=== PATIENT | female | born 1960 | race Caucasian/White ===

== ENCOUNTER 2020-02-27 23:04 | Inpatient (IN) | payer OTHER ==
[~2020-02-27] VITALS: Ht 177.8 cm; Wt 150.4 kg
[2020-02-28] VITALS (51 sets, daily range): BP systolic 86–130; BP diastolic 37–85
[2020-02-28 00:09] LABS: Basophils # (auto) 0.1 10 ^3/uL (0-0.2); Basophils % (auto) 0.8 % (0.0-2.0); Eosinophils # (auto) 0.1 10 ^3/uL (0-0.8); Eosinophils % (auto) 1.2 % (0.0-7.0); Hematocrit 36.6 % (36.0-46.0); Hemoglobin 12.2 g/dL (12.2-16.2); Lymphocytes # (auto) 2.2 10 ^3/uL (0.4-5.4); Lymphocytes % (auto) 19.6 % (10.0-50.0); Mean Corpuscular Hemoglobin 29.4 pg (28.0-32.0); Mean Corpuscular Hgb Conc. 33.4 g/dL (32.0-36.0); Mean Corpuscular Volume 87.9 fL (80.0-100.0); Monocytes # (auto) 0.7 10 ^3/uL (0-1.3); Monocytes % (auto) 5.9 % (0.0-12.0); Neutrophils # (auto) 8.1 10 ^3/uL (1.6-8.6); Neutrophils % (auto) 72.5 % (37.0-80.0); Platelet Count (auto) 315 10^3/uL (140-450); Red Blood Cells 4.17 10^6/uL (4.0-5.20); Red Cell Distribution Width 15.1 % (11.8-14.3); White Blood Cell 11.2 10^3/uL (4.4-10.8)
[2020-02-28] MEDS ORDERED: dilTIAZem 25 MG/5 ML VIAL IV ONE ×2 (00:15→04:30)
[2020-02-28 00:17] LABS: INR 1.08 (0.9-1.15); Partial Thromboplastin Time 30.7 sec (23.0-31.2)
[2020-02-28 00:19] LABS: Alanine Aminotransferase 21 U/L (13-56); Albumin 3.2 g/dL (3.4-5.0); Anion Gap 7 (5-15); Aspartate Aminotransferase 15 U/L (15-37); Blood Urea Nitrogen 16 mg/dL (7-18); Calcium 8.8 mg/dL (8.5-10.1); Carbon Dioxide 22 mmol/L (21-32); Chloride 113 mmol/L (98-107); GFR African American 53 mL/min; GFR Non-African American 43 mL/min; Glucose 143 mg/dL (74-106); Potassium 3.6 mmol/L (3.5-5.1); Sodium 142 mmol/L (136-145)
[2020-02-28 00:24] LABS: Alkaline Phosphatase 102 U/L (45-117); Bilirubin, Total 0.2 mg/dL (0.2-1.0)
[2020-02-28] MEDS ORDERED: AMIODARONE HCL 150 MG in D5W 5% 100 ML IV STA (01:35)
[2020-02-28] MEDS ORDERED: LORazepam 2MG/ML-1ML VIAL IV ONE (01:45)
[2020-02-28] MEDS ORDERED: AMIODARONE HCL (50 MG/ ML) 3 ML VIAL IV ONE (02:10)
[2020-02-28] MEDS ORDERED: SODIUM CHLORIDE 0.9% 1,000 ML IV ONE (03:15)
[2020-02-28] MEDS ORDERED: dilTIAZem 125mg/125ml BAG KIT 125 ML IV ONE (04:30)
[2020-02-28] MEDS ORDERED: ONDANSETRON HCL 4 MG/2 ML VIAL IV PRN (05:15)
[2020-02-28] MEDS ORDERED: TEMAZEPAM 15 MG CAP PO PRN (05:15)
[2020-02-28] MEDS ORDERED: ACETAMINOPHEN 325 MG TAB PO PRN (05:15)
[2020-02-28] MEDS ORDERED: DOCUSATE SOD 100 MG CAP PO PRN (05:15)
[2020-02-28] MEDS ORDERED: LORazepam 0.5 MG TAB PO PRN (05:15)
[2020-02-28] MEDS ORDERED: HYDROcodone-ACET 5/325MG TAB PO PRN (05:15)
--- NOTE | 2020-02-28 09:10 | NUR ---
ICU admit from ER SERINAJACKY admitted to ICU unit after telephone report. Patient oriented to Elissa ontiveros RN, unit, room, bed, and unit policies regarding patient care and visiting hours. Patient now on continuous bedside monitoring, noted Afib 148 bp 96/73. Patient denies any cp or dizziness. Cardizem gtt infusing at 8mg/hr to left ac 18g. IV patent and asymptomatic. Patient on room air, pox 97% . Skin intact, only noted to have multiple pink scabs throughout body. Denies any pain. Home medications taken to pharmacy. All belongings reviewed and verified on checklist. Encouraged dahl to be taken to safe, Dahl requested to stay at bedside. Patient aware hospital is not responsible for any lost items. Patient weighed by bedscale and encouraged to call if they need something. All questions and concerns addressed, patient verbalized understanding. Note: See further notes.
[2020-02-28] MEDS ORDERED: OXYB10GE PO (10:02)
[2020-02-28] MEDS ORDERED: RIVA20TA PO (10:02)
[2020-02-28] MEDS ORDERED: VERA120T6 PO (10:02)
[2020-02-28] MEDS ORDERED: OMEP-434 PO (10:02)
--- NOTE | 2020-02-28 10:24 | NUR ---
APPLIED PSYCHOLOGY CHAIR DR. KAUFMAN AT BEDSIDE UPDATED ON PATIENTS STATUS. NEW ORDERS IN PLACE. Addendum: 02/28/20 at 1432 by Elissa Stratton RN Medication to be given cautiously as patients bp 100's. Will continue to monitor.
[2020-02-28] MEDS ORDERED: DIGOXIN (250MCG/ML) 2 ML AMPULE IV ONE ×2 (10:30→14:30)
--- NOTE | 2020-02-28 11:00 | NUR ---
Elimination Patients expressed having to urinate. Patient assisted to bedside commode using standby assistance. Patient denied any cp or dizziness. Hr noted to increase to 130's otherwise tolerated well. 300ml of cloudy, pale urine noted.... urine to be collected.
[2020-02-28] MEDS ORDERED: AMIODARONE HCL 200 MG TAB PO ONE (11:15)
--- NOTE | 2020-02-28 11:49 | NUR ---
NO PASSWORD- FAMILY PATIENTS NOK IS - HOLGER VELAZQUEZ. IS CURRENTLY UNAVAILABLE HE IS HOSPITALIZED IN ICU AT THIS TIME. CONTACT FOR EMERGENCY SITUATION ONLY IS SISTER IN LAW MARY ANN FOR GENERALIZED INFORMATION ONLY.
[2020-02-28] MEDS ORDERED: METOPROLOL TARTRATE 25 MG TAB PO ONE (12:00)
--- NOTE | 2020-02-28 12:00 | NUR ---
Md Rounds Md updated patient at bedside. New orders in place. Per md if patients hr becomes more stable, pt to be downgraded in evening.
--- NOTE | 2020-02-28 12:06 | NUR ---
IV insertion IV access obtained, via clean sterile technique by inserting 20 gauge catheter at LEFT HAND after 1 attempt(s). IV secured properly. No trauma to site. Patient tolerated procedure well.
--- NOTE | 2020-02-28 13:00 | NUR ---
Nutrition Patient ate 100% of lunch tray. Tolerated well with no difficulties.
--- NOTE | 2020-02-28 14:26 | NUR ---
Medication/ Hr 150's. Despite mediations given as ordered, patients hr ranging 115-145. Cardizem gtt increased. See iv spreadsheet.
--- NOTE | 2020-02-28 15:35 | NUR ---
Medication Heart rate trending 95-130's. Digoxin Ivp to be given as ordered. Patient denies any cp or dizziness. Addendum: 02/28/20 at 1538 by Elissa Stratton RN AMEND: DIGOXIN TO BE GIVEN 6 HRS AFTER FIRST DOSE. CARDIZEM GTT TO BE ADJUSTED ORDERED FOR HR CONTROL LESS THAN 110.
[2020-02-28] MEDS ORDERED: dilTIAZem 125mg/125ml BAG KIT 125 ML IV SCH (17:00)
[2020-02-28 18:35] LABS: Urine Bacteria FEW /hpf (None Seen); Urine Blood Negative /uL (Negative); Urine Specific Gravity 1.013 (1.001-1.035); Urine WBC 23 /hpf (0 - 5)
--- NOTE | 2020-02-28 19:18 | NUR ---
Shoeshiner Paged paged to notify of patients current condition as hr is still 115-140's at rest although still remains asymptomatic. New orders in place for flaco Hyatt. stating if patient not better by Sunday possible cardioversion.
[2020-02-28] MEDS: OXYBUTYNIN CHL 5 MG TAB PO SCH (21:29)
[2020-02-28] MEDS: RIVAROXABAN 20 MG TAB PO SCH (21:30)
[2020-02-28] MEDS: AMIODARONE HCL 200 MG TAB PO SCH (21:31)
[2020-02-28] MEDS ORDERED: RIVAROXABAN 20 MG TAB PO SCH (22:00)
[2020-02-28] MEDS ORDERED: METOPROLOL TARTRATE 25 MG TAB PO SCH (22:00)
[2020-02-28] MEDS ORDERED: OXYBUTYNIN CHL 5 MG TAB PO SCH (22:00)
--- NOTE | 2020-02-28 22:05 | NUR ---
Elimination pt up to bedside toilet with standby assistance. No complaints of dizziness/SOB. Ambulates well with even and steady gait. 400 ml of cloudy yellow, strong smelling urine measured.
[2020-02-28] MEDS: dilTIAZem HCL 60 MG TAB PO SCH (23:56)
[2020-02-29] VITALS (44 sets, daily range): BP systolic 78–146; BP diastolic 46–113
--- NOTE | 2020-02-29 02:17 | NUR ---
Elimination pt up to bedside toilet with standby assistance. No complaints of dizziness/SOB. Ambulates well with even and steady gait. 300 ml of cloudy yellow, strong smelling urine measured.
--- NOTE | 2020-02-29 03:57 | NUR ---
CARDIZEM GTT HELD FOR HYPOTENSION AND STABLE HR AT THIS TIME.
--- NOTE | 2020-02-29 04:07 | NUR ---
PT REFUSING Q15 MINUTE VITAL SIGNS PT STATES THAT "CUFF IS HURTING" AND THAT "THE PAIN WILL MAKE MY HEART RATE HIGHER" EDUCATED PT ON ICU STANDARDS OF CARE AND SIDE EFFECTS OF MEDICATIONS SHE HAS BEEN RECEIVING AND IMPORTANCE OF HAVING ACCURATE AND FREQUENT BP MEASUREMENTS. DESPITE EDUCATION SHE REFUSES Q15 MINUTE VITAL SIGNS, BUT DOES AGREE TO Q1HOUR. ATTEMPTED COMFORT MEASURES, CUFF REPOSITIONING, AND ARM ELEVATION WITH NO SUCCESS. Addendum: 02/29/20 at 0526 by TINO HERNANDEZ RN PT REFUSED TO WEAR NC AT 2L WHILE SLEEPING DESPITE DESATURATING INTO LOW 80'S. PT STATES THAT SHE DOES NOT LIKE THE SMELL OF THE OXYGEN.
[2020-02-29 04:18] LABS: Basophils # (auto) 0.1 10 ^3/uL (0-0.2); Basophils % (auto) 0.6 % (0.0-2.0); Eosinophils # (auto) 0.2 10 ^3/uL (0-0.8); Eosinophils % (auto) 1.7 % (0.0-7.0); Hematocrit 39.5 % (36.0-46.0); Hemoglobin 13.1 g/dL (12.2-16.2); Lymphocytes # (auto) 1.9 10 ^3/uL (0.4-5.4); Lymphocytes % (auto) 19.3 % (10.0-50.0); Mean Corpuscular Hemoglobin 29.6 pg (28.0-32.0); Mean Corpuscular Hgb Conc. 33.1 g/dL (32.0-36.0); Mean Corpuscular Volume 89.4 fL (80.0-100.0); Monocytes # (auto) 0.7 10 ^3/uL (0-1.3); Monocytes % (auto) 7.1 % (0.0-12.0); Neutrophils # (auto) 6.9 10 ^3/uL (1.6-8.6); Neutrophils % (auto) 71.3 % (37.0-80.0); Platelet Count (auto) 303 10^3/uL (140-450); Red Blood Cells 4.42 10^6/uL (4.0-5.20); Red Cell Distribution Width 15.2 % (11.8-14.3); White Blood Cell 9.6 10^3/uL (4.4-10.8)
[2020-02-29 04:33] LABS: Potassium 4.3 mmol/L (3.5-5.1)
[2020-02-29 04:42] LABS: BUN/Creatinine Ratio 12.7; Bilirubin, Total 0.3 mg/dL (0.2-1.0); Calcium 8.6 mg/dL (8.5-10.1); Total Protein 6.8 g/dL (6.4-8.2)
[2020-02-29] MEDS: dilTIAZem HCL 60 MG TAB PO SCH (06:00)
--- NOTE | 2020-02-29 06:31 | NUR ---
IV DISCONTINUED 18G TO LEFT AC DISCONTINUED DUE TO EXCESSIVE BLEEDING AROUND SITE. CATHETER INTACT UPON REMOVAL. PT TOLERATED WELL WITH NO COMPLAINTS OF PAIN.
--- NOTE | 2020-02-29 06:56 | NUR ---
CARDIZEM GTT RESTARTED FOR HR MAINTAINING >120 BEATS/MIN. PT AGREES TO Q15 BP MEASUREMENTS WHILE ON GTT.
--- NOTE | 2020-02-29 07:30 | NUR ---
STATUS REPORT OBTAINED. PATIENT RESTING AND HR NOTED 98-130'S. BP STABLE. PT REMAINS ON CARDIZEM GTT AT THIS TIME. SEE PHYSICAL/ INTERVENTIONS.
--- NOTE | 2020-02-29 08:30 | NUR ---
MEDICATIONS REFUSED MORNING MEDIATIONS REVIEWED WITH PATIENT. PATIENT UPSET THAT WET PAN MIXER HAS NOT PUT HER BACK ON HER HOME MEDICATIONS. SHE IS EXPRESSING FRUSTRATION BECAUSE HER HR IS STILL NOT MANAGED. EXPLAINED TO PATIENT THAT MEDICATION PRESCRIBED ARE TO ASSIST WITH BRINGING HR DOWN. PATIENT CONTINUES TO EXPRESS FRUSTRATION AND REFUSING TO TAKE MORNING MEDICATIONS UNTIL WET PAN MIXER ARRIVES. TO BE PAGED.
--- NOTE | 2020-02-29 08:45 | NUR ---
ELIMINATION PATIENT ABLE TO AMBULATE TO RESTROOM USING STANDBY ASSISTANCE. STEADY GAIT NOTED. HR NOTED IN 130'S PT REMAINS ASYMPTOMATIC
[2020-02-29] MEDS: cefTRIAXone 1GM/50ML D5W 50 ML IV SCH (08:50)
[2020-02-29] MEDS ORDERED: CAND4TAB7 PO (08:56)
[2020-02-29] MEDS ORDERED: BISO5TAB44 PO (09:01)
--- NOTE | 2020-02-29 09:03 | NUR ---
ER/ MEDICATION ASKING PATIENT HOME MEDICATION LIST SHE MENTIONED SHE TAKES AN ALTERNATIVE MEDICATION PRN WHEN HR ELEVATED. MED REC UPDATED. WHEN ASKED WHAT MEDICATION IT IS, SHE STATED "I HAVE IT IN MY BAG". LOOKED OVER IN BELONGINGS AND PILLS NOT PRESENT ALTHOUGH ANOTHER BOTTLE WAS FOUND. MEDICATION TO BE TAKEN TO PHARMACY. ER CALLED TO DETERMINE IF THEY HAVE MISSING PILLS. ER STATED THEY DON'T HAVE ANYTHING AT THIS TIME BUT THEY WILL LOOK AROUND. PATIENT NOTIFIED.
--- NOTE | 2020-02-29 09:28 | NUR ---
Lumber Piler Operator update Dr. Weeks aware of refusal to take medications at this time. Per md home medications are not to be started at this time. Md will round soon. Patient notified.
[2020-02-29] MEDS ORDERED: PANTOPRAZOLE 40 MG TAB PO SCH (10:00)
--- NOTE | 2020-02-29 10:22 | NUR ---
Upset Patient explained that md will be rounding shortly and will explain why he would like for her to remain on current prescribed medications. Patient continues to express frustration stating, " I have never had this problem when my heart rate has been so high for so long." Explained hr was managed over night as Cardizem gtt was stopped. Explained taking morning medication prescribed by physicist cryogenics could assist with elevated hr. Patient continues to state she refuses medications because she wants to start back on her own heart medications. Patient aware of risk of not taking medications and having elevated heart rate. Patient verbalized understanding and continues to refuse.
--- NOTE | 2020-02-29 10:32 | NUR ---
IV removal Patient called stating her iv is "stinging". Iv is tender to touch, slighly puffy. IV DC'd with sterile technique, catheter fully intact. Pressure dressing applied to site. Patient tolerated procedure well.
--- NOTE | 2020-02-29 10:43 | NUR ---
Plate Corrector Dr. Weeks at bedside. Patient expressing her concern, hx of similar episodes and frustration. Md explained medications of his choice at this time, patient refusing to listen and continues to insist she wants her medications because " they work". Md explained medications have not been working therefore she is here in the icu being treated for elevated hr. Md agrees to attempt her home medications as she is insisting. Cardizem gtt to be turned off.
--- NOTE | 2020-02-29 10:49 | NUR ---
ER CALLED AGAIN TO VERIFY IF HOME MEDICATION CLAIMED BY PATIENT WAS FOUND. CHIEF CRNA STATING SHE LOOKED IN ROOM AND OTHER LOCATIONS. NO MEDICATIONS FOUND.
--- NOTE | 2020-02-29 10:57 | NUR ---
BETA CLOVIS UNAVAILABLE PATIENT BISOPROLOL UNAVAILABLE THROUGH IN HOUSE PHARMACY. EQUIVALENT DOSE IS ATENOLOL PER RX. PATIENT AGREED TO TAKE EQUIVALENT DOSE. MD AGREES. SEE NEW ORDER.
--- NOTE | 2020-02-29 10:59 | NUR ---
IV insertion IV access obtained, via clean sterile technique by inserting 20 gauge catheter at right AC after 3 attempt(s) By 2 nurses. IV secured properly. No trauma to site. Patient tolerated procedure well.
[2020-02-29] MEDS ORDERED: VERAPAMIL HCL 120 mg ER tab PO ONE (11:00)
[2020-02-29] MEDS ORDERED: ATENOLOL 50 MG TAB PO ONE (11:00)
[2020-02-29] MEDS: AMIODARONE HCL 200 MG TAB PO SCH ×2 (11:29→21:48)
--- NOTE | 2020-02-29 13:00 | NUR ---
Nutrition Patient sitting at edge of bed with lunch tray. Ate 100%, pt tolerated well.
--- NOTE | 2020-02-29 14:00 | NUR ---
Elimination Patient requesting to use restroom in roon. Patient transferred independently with steady gait noted. Hr remained under 120's. Pt tolerated well. Urine noted yellow, cloudy with strong odor. Self emre care provided.
--- NOTE | 2020-02-29 18:24 | NUR ---
Activity tolerated well Patient sitting up at edge of bed. Hr remained 88-96. Diet tolerated well. Dinner tray provided.
[2020-02-29] MEDS: OXYBUTYNIN CHL 5 MG TAB PO SCH (21:47)
[2020-02-29] MEDS: RIVAROXABAN 20 MG TAB PO SCH (21:49)
[2020-02-29] MEDS: OMEPRAZOLE 20 MG PO SCH (21:50)
[2020-03-01] VITALS (15 sets, daily range): BP systolic 94–128; BP diastolic 62–84
--- NOTE | 2020-03-01 06:00 | NUR ---
OOB TO RESTROOM Patient walked to the restroom independently with steady gait during night x3.
--- NOTE | 2020-03-01 08:37 | NUR ---
DR. KAUFMAN AT BEDSIDE
--- NOTE | 2020-03-01 08:47 | NUR ---
REPORT GIVEN TO FADY WILLSON TO ASSUME CARE
--- NOTE | 2020-03-01 08:49 | NUR ---
Opening Shift Note Assumed care of patient, awake and alert, watching television, ate 100% of breakfast. Patient denies pain or discomfort at this time. Instructed on POC and to call for assist PRN, will continue to monitor for changes Q1hr and PRN.
[2020-03-01] MEDS: cefTRIAXone 1GM/50ML D5W 50 ML IV SCH (09:19)
[2020-03-01] MEDS: AMIODARONE HCL 200 MG TAB PO SCH ×2 (09:20→21:59)
[2020-03-01] MEDS: VERAPAMIL HCL 120 mg ER tab PO SCH ×2 (09:22→22:08)
[2020-03-01] MEDS: ATENOLOL 50 MG TAB PO SCH (09:23)
[2020-03-01] MEDS ORDERED: VERAPAMIL HCL 120 mg ER tab PO SCH (10:00)
--- NOTE | 2020-03-01 11:10 | NUR ---
URINE SENT/OUT OF BED PATIENT AMBULATED TO TOILET WITH STANDBY ASSIST ONLY, URINE SENT TO LAB ORDERED BY MD. PATIENT SITTING UP IN CHAIR, TOLERATING WELL. CALL LIGHT AND ALL PERSONAL BELONGINGS WITHIN REACH. FALL AND SAFETY PRECAUTIONS IN PLACE.
--- NOTE | 2020-03-01 16:15 | NUR ---
RETURN TO BED PATIENT REQUESTING TO USE TOILET AND RETURN TO BED. PATIENT ABLE TO AMBULATE FROM CHAIR TO BED AND REPORTED FEELING DIZZY, PATIENT PLACED ON 2 LITERS OXYGEN VIA NASAL CANNULA. PATIENT REPORTED FEELING BETTER BUT NEEDED TO "PEE". PATIENT AMBULATED FROM BED TO TOILET AND ABLE TO PERFORM OWN ADLS. ONCE AGAIN PATIENT AMBULATED FROM TOILET TO BED WITH STANDBY ASSISTANCE. ALL PERSONAL BELONGINGS AND CALL LIGHT WITHIN REACH, FALL AND SAFETY PRECAUTIONS IN PLACE. WILL CONTINUE TO MONITOR.
[2020-03-01] MEDS: MUPIROCIN 2% OINT 15gm or 22gm EACHNOSTRI SCH ×2 (18:16→21:59)
--- NOTE | 2020-03-01 19:00 | NUR ---
Opening Shift Note Assumed care of patient, awake and alert. No S/S of distress/SOB or pain. Instructed on POC and to call for assist PRN, will continue to monitor for changes Q1hr and PRN.
--- NOTE | 2020-03-01 20:30 | NUR ---
BM: Patient had a BM.
--- NOTE | 2020-03-01 20:45 | NUR ---
Report given to Sanjay WILLSON.
--- NOTE | 2020-03-01 21:00 | NUR ---
Transfer: Patient transferred to tele unit, room 220B with no incident.
--- NOTE | 2020-03-01 21:00 | NUR ---
REPORT RECEIVED FROM ICU NURSE CHEPE RECEIVED PATIENT SHORTLY AFTERWARDS. PATIENT AOX4, PATIENT STABLE AND PLACED INTO BED. PATIENT EDUCATED ON PLAN OF CARE FOR THE NIGHT AND PATIENT VERBALIZED UNDERSTANDING. BED LOWERED, CALL LIGHT WITHIN REACH, AND PATIENT WILL BE ROUNDED ON EVERY HOUR AND NEEDED.
[2020-03-01] MEDS: OMEPRAZOLE 20 MG PO SCH (21:59)
[2020-03-01] MEDS: RIVAROXABAN 20 MG TAB PO SCH (21:59)
[2020-03-01] MEDS: OXYBUTYNIN CHL 5 MG TAB PO SCH (21:59)
[2020-03-02 05:19] VITALS: BP 114/67
--- NOTE | 2020-03-02 07:30 | NUR ---
Opening Shift Note Assumed care of patient from noc shift rn, awake, A/O x4. No S/S of distress/SOB, denies pain. Instructed on POC and to call for assist PRN. Bed in the lowest and locked position, call light within reach. Will continue to monitor for changes Q1hr and PRN.
[2020-03-02] MEDS: cefTRIAXone 1GM/50ML D5W 50 ML IV SCH (08:28)
[2020-03-02 09:00] VITALS: BP 110/66
[2020-03-02] MEDS: VERAPAMIL HCL 120 mg ER tab PO SCH (09:59)
[2020-03-02] MEDS: ATENOLOL 50 MG TAB PO SCH (10:00)
[2020-03-02] MEDS: MUPIROCIN 2% OINT 15gm or 22gm EACHNOSTRI SCH (10:01)
[2020-03-02] MEDS: AMIODARONE HCL 200 MG TAB PO SCH (10:01)
--- NOTE | 2020-03-02 10:22 | NUR ---
DR. Servando LEVI AT BEDSIDE, DISCUSSED DISCHARGE PLANS AND NEW PRESCRIPTION WITH PT. PATIENT VERBALIZED UNDERSTANDING.
[2020-03-02 13:15] VITALS: BP 110/66
--- NOTE | 2020-03-02 13:50 | NUR ---
assessment Patient has no post discharge needs identified. Addendum: 03/02/20 at 1351 by Jeri DODSON Amended: Links added.
--- NOTE | 2020-03-02 14:33 | NUR ---
PATIENT DISCHARGED HOME PER MD'S ORDER. NEW PRESCRIPTIONS, SUMMARY OF CARE AND FOLLOW UP INSTRUCTIONS PROVIDED. PATIENT VERBALIZED UNDERSTANDING. OWN MEDICATION PICKED UP FROM PHARMACY AND GIVEN TO PATIENT. IV DISCONTINUED AND TELE MONITOR RETURNED TO ICU. PATIENT REMAINS A/O DURING DISCHARGE.
== END 2020-03-02 14:33 | disposition home or self-care (01) | DRG 309 ==
LOC: EDBD 23:04 → ER 23:09 → TELE 23:10 → ICU WEST 02-28 07:26 → TELE-CENTR 03-01 20:53
PROVIDERS: ADMIT Hospitalist; ATTEND Family Medicine
DX: I48.91 Unspecified atrial fibrillation (principal); N39.0 Urinary tract infection, site not specified; Z68.42 Body mass index [BMI] 45.0-49.9, adult; I70.0 Atherosclerosis of aorta; E66.01 Morbid (severe) obesity due to excess calories; I10 Essential (primary) hypertension; I95.9 Hypotension, unspecified; F41.9 Anxiety disorder, unspecified; R73.9 Hyperglycemia, unspecified; N32.81 Overactive bladder; Z87.440 Personal history of urinary (tract) infections; Z91.19 Patient's noncompliance with other medical treatment and regimen; Z79.01 Long term (current) use of anticoagulants
CPT/HCPCS: 36415; 71045; 80053; 81001; 83036; 83735; 83880; 84443; 84484; 85025; 85610; 85730; 87081; 87086; 93005; G0378; J0696; J7060

== ENCOUNTER 2021-03-24 13:22 | Inpatient (IN) | payer OTHER ==
[~2021-03-24] VITALS: Ht 167.6 cm; Wt 93.1 kg
[~2021-03-24 13:22] MED LIST: BISO5TAB44 PO; CAND4TAB7 PO; OMEP-434 PO; OXYB10GE PO; RIVA20TA PO; VERA120T13 PO
[2021-03-24] MEDS ORDERED: dilTIAZem 25 MG/5 ML VIAL IV ONE ×2 (13:42→14:00)
[2021-03-24] MEDS ORDERED: dilTIAZem 125mg/125ml BAG KIT 125 ML IV ONE ×3 (13:48→14:00)
[2021-03-24 14:25] LABS: Basophils # (auto) 0.1 10 ^3/uL (0-0.2); Basophils % (auto) 0.9 % (0.0-2.0); Eosinophils # (auto) 0.1 10 ^3/uL (0-0.8); Eosinophils % (auto) 0.9 % (0.0-7.0); Hematocrit 43.3 % (36.0-46.0); Hemoglobin 14.1 g/dL (12.2-16.2); Lymphocytes # (auto) 2.3 10 ^3/uL (0.4-5.4); Lymphocytes % (auto) 21.8 % (10.0-50.0); Mean Corpuscular Hemoglobin 28.8 pg (28.0-32.0); Mean Corpuscular Hgb Conc. 32.7 g/dL (32.0-36.0); Mean Corpuscular Volume 88.1 fL (80.0-100.0); Monocytes # (auto) 0.7 10 ^3/uL (0-1.3); Monocytes % (auto) 6.6 % (0.0-12.0); Neutrophils # (auto) 7.5 10 ^3/uL (1.6-8.6); Neutrophils % (auto) 69.8 % (37.0-80.0); Red Blood Cells 4.92 10^6/uL (4.0-5.20); Red Cell Distribution Width 15.4 % (11.8-14.3); White Blood Cell 10.8 10^3/uL (4.4-10.8)
[2021-03-24 14:36] LABS: INR 1.2 (0.9-1.15); Partial Thromboplastin Time 34.6 sec (23.6-33.0)
[2021-03-24 14:37] LABS: Albumin 3.2 g/dL (3.4-5.0); Calcium 8.7 mg/dL (8.5-10.1); Potassium 3.9 mmol/L (3.5-5.1)
[2021-03-24 14:44] LABS: BUN/Creatinine Ratio 12.5; Bilirubin, Total 0.5 mg/dL (0.2-1.0); Total Protein 7.6 g/dL (6.4-8.2)
[2021-03-24] MEDS ORDERED: OXYB5TAB61 PO (16:20)
[2021-03-24] MEDS ORDERED: LACTCAP35 PO (16:21)
[2021-03-24] MEDS ORDERED: MORPHINE SULFATE INJECTION 2 MG/ML SYRG IV PRN ×3 (16:30→18:15)
[2021-03-24] MEDS ORDERED: NITROGLYCERIN 0.4 MG SL TAB SL PRN ×2 (16:30→18:15)
[2021-03-24] MEDS ORDERED: LACTATED RINGER'S 1,000 ML IV ONE (17:45)
[2021-03-24] MEDS ORDERED: dilTIAZem 125mg/125ml BAG KIT 125 ML IV SCH (17:45)
[2021-03-24] MEDS ORDERED: METOPROLOL SUCCINATE XL 50 MG TAB PO ONE (18:00)
[2021-03-24] MEDS ORDERED: ACETAMINOPHEN 325 MG TAB PO PRN (18:15)
[2021-03-24] MEDS ORDERED: HYDROcodone-ACET 5/325MG TAB PO PRN (18:15)
[2021-03-24] MEDS ORDERED: ATORVASTATIN 20 MG TAB PO ONE (18:15)
[2021-03-24] MEDS ORDERED: LORazepam 0.5 MG TAB PO PRN (18:15)
[2021-03-24] MEDS ORDERED: CEFEPIME 1 GM in SODIUM CHL 0.9% 50 ML IV ONE (18:15)
[2021-03-24] MEDS ORDERED: ONDANSETRON HCL 4 MG/2 ML VIAL IV PRN (18:15)
[2021-03-24] MEDS ORDERED: DOCUSATE SOD 100 MG CAP PO PRN (18:15)
[2021-03-24] MEDS ORDERED: ALUM & MAG HYDROX-SIMETH LIQ(MAALOX) 30 ML PO PRN (18:15)
[2021-03-24] MEDS ORDERED: AMIODARONE HCL 200 MG TAB PO ONE (18:30)
[2021-03-24] MEDS: LACTATED RINGER'S 1,000 ML IV SCH (19:00)
[2021-03-24] MEDS: FAMOTIDINE (10MG/ML) 2ML VL IV SCH (20:57)
[2021-03-24] MEDS: FLORASTOR (S. BOULARDII) 250 MG CAP PO SCH (22:00)
[2021-03-24] MEDS ORDERED: FAMOTIDINE (10MG/ML) 2ML VL IV SCH (22:00)
[2021-03-24] MEDS ORDERED: ATORVASTATIN 20 MG TAB PO SCH (22:00)
[2021-03-24] MEDS: CEFEPIME 1 GM in SODIUM CHL 0.9% 50 ML IV SCH (22:49)
[2021-03-25 00:32] LABS: Urine Bacteria FEW /hpf (None Seen); Urine Blood Negative /uL (Negative); Urine Mucus FEW (None Seen); Urine Specific Gravity 1.016 (1.001-1.035); Urine WBC 124 /hpf (0 - 5)
[2021-03-25 00:42] LABS: Amphetamine Screen, Urine NEGATIVE (NEGATIVE); Barbiturate Scree,Urine NEGATIVE (NEGATIVE); Benzodiazephine Screen, Urine NEGATIVE (NEGATIVE); Cannabinoid Screen, Urine NEGATIVE (NEGATIVE); Cocaine Screen, Urine NEGATIVE (NEGATIVE); Opiate Scree,Urine NEGATIVE (NEGATIVE); Phencyclidine Screen, Urine NEGATIVE (NEGATIVE)
[2021-03-25] MEDS: METOPROLOL SUCCINATE XL 50 MG TAB PO SCH ×4 (01:04→23:37)
[2021-03-25] MEDS: CEFEPIME 1 GM in SODIUM CHL 0.9% 50 ML IV SCH ×3 (01:13→21:31)
[2021-03-25 07:00] LABS: INR 1.13 (0.9-1.15); Partial Thromboplastin Time 31.5 sec (23.6-33.0)
[2021-03-25 07:04] LABS: Basophils # (auto) 0.1 10 ^3/uL (0-0.2); Basophils % (auto) 0.6 % (0.0-2.0); Eosinophils # (auto) 0.1 10 ^3/uL (0-0.8); Eosinophils % (auto) 1.4 % (0.0-7.0); Hematocrit 36.6 % (36.0-46.0); Hemoglobin 12.2 g/dL (12.2-16.2); Lymphocytes # (auto) 2.3 10 ^3/uL (0.4-5.4); Lymphocytes % (auto) 22.9 % (10.0-50.0); Mean Corpuscular Hemoglobin 29.6 pg (28.0-32.0); Mean Corpuscular Hgb Conc. 33.4 g/dL (32.0-36.0); Mean Corpuscular Volume 88.5 fL (80.0-100.0); Monocytes # (auto) 0.7 10 ^3/uL (0-1.3); Monocytes % (auto) 6.9 % (0.0-12.0); Neutrophils # (auto) 6.9 10 ^3/uL (1.6-8.6); Neutrophils % (auto) 68.2 % (37.0-80.0); Nucleated Red Blood Cells % 0.1 %; Red Blood Cells 4.14 10^6/uL (4.0-5.20); Red Cell Distribution Width 15.4 % (11.8-14.3); White Blood Cell 10.1 10^3/uL (4.4-10.8)
[2021-03-25 07:11] LABS: Albumin 2.9 g/dL (3.4-5.0); Calcium 8.3 mg/dL (8.5-10.1); Potassium 3.9 mmol/L (3.5-5.1)
[2021-03-25 07:19] LABS: BUN/Creatinine Ratio 10.7; Bilirubin, Total 0.6 mg/dL (0.2-1.0); Phosphorus 2.6 mg/dL (2.5-4.90); Total Protein 6.5 g/dL (6.4-8.2)
[2021-03-25] MEDS ORDERED: METOPROLOL SUCCINATE XL 50 MG TAB PO SCH (10:00)
[2021-03-25] MEDS ORDERED: AMIODARONE HCL 200 MG TAB PO SCH (10:00)
[2021-03-25] MEDS: FLORASTOR (S. BOULARDII) 250 MG CAP PO SCH ×2 (10:46→23:26)
[2021-03-25] MEDS: LOSARTAN POTASSIUM 25 MG TAB PO SCH (10:47)
[2021-03-25] MEDS: OXYBUTYNIN CHL 5 MG TAB PO SCH (10:47)
[2021-03-25] MEDS: FAMOTIDINE (10MG/ML) 2ML VL IV SCH ×2 (10:47→23:43)
[2021-03-25] MEDS ORDERED: DIGOXIN (250MCG/ML) 2 ML AMPULE IV ONE (15:00)
[2021-03-25] MEDS: AMIODARONE HCL 200 MG TAB PO SCH ×2 (15:30→23:25)
[2021-03-25] MEDS ORDERED: OMNIPAQUE ORAL SOLN 500ml 12mg/ml PO ONE ×2 (16:34→17:00)
[2021-03-25] MEDS ORDERED: dilTIAZem 125mg/125ml BAG KIT 0 ML IV ONE (17:12)
[2021-03-25] MEDS: LACTATED RINGER'S 1,000 ML IV SCH (17:39)
[2021-03-25] MEDS: RIVAROXABAN 20 MG TAB PO SCH (17:57)
[2021-03-25] MEDS ORDERED: IOHEXOL 300 MG/ML 100ML BOTTLE IJ ONE (20:59)
[2021-03-25] MEDS: ATORVASTATIN 20 MG TAB PO SCH (23:25)
[2021-03-26] MEDS: CEFEPIME 1 GM in SODIUM CHL 0.9% 50 ML IV SCH ×2
[2021-03-26] MEDS ORDERED: METOPROLOL TARTRATE 50 MG TAB PO ONE (03:00)
[2021-03-26] MEDS: LACTATED RINGER'S 1,000 ML IV SCH ×3 (09:45→22:00)
[2021-03-26] MEDS ORDERED: METOPROLOL TARTRATE 50 MG TAB PO SCH (10:00)
[2021-03-26] MEDS: OXYBUTYNIN CHL 5 MG TAB PO SCH (10:00)
[2021-03-26] MEDS: FLORASTOR (S. BOULARDII) 250 MG CAP PO SCH ×2 (10:00→22:00)
[2021-03-26] MEDS: FAMOTIDINE (10MG/ML) 2ML VL IV SCH ×2 (10:00→22:00)
[2021-03-26] MEDS: AMIODARONE HCL 200 MG TAB PO SCH (10:00)
[2021-03-26] MEDS: LOSARTAN POTASSIUM 25 MG TAB PO SCH (10:04)
[2021-03-26] MEDS: METOPROLOL SUCCINATE XL 50 MG TAB PO SCH ×2 (10:05→22:00)
[2021-03-26 12:28] LABS: Basophils # (auto) 0.1 10 ^3/uL (0-0.2); Basophils % (auto) 0.7 % (0.0-2.0); Eosinophils # (auto) 0.1 10 ^3/uL (0-0.8); Eosinophils % (auto) 1.7 % (0.0-7.0); Hematocrit 38.2 % (36.0-46.0); Hemoglobin 12.8 g/dL (12.2-16.2); Lymphocytes # (auto) 1.7 10 ^3/uL (0.4-5.4); Lymphocytes % (auto) 20.4 % (10.0-50.0); Mean Corpuscular Hemoglobin 29.4 pg (28.0-32.0); Mean Corpuscular Hgb Conc. 33.6 g/dL (32.0-36.0); Mean Corpuscular Volume 87.6 fL (80.0-100.0); Monocytes # (auto) 0.6 10 ^3/uL (0-1.3); Monocytes % (auto) 7.6 % (0.0-12.0); Neutrophils # (auto) 5.8 10 ^3/uL (1.6-8.6); Neutrophils % (auto) 69.6 % (37.0-80.0); Red Blood Cells 4.36 10^6/uL (4.0-5.20); Red Cell Distribution Width 15.2 % (11.8-14.3); White Blood Cell 8.4 10^3/uL (4.4-10.8)
[2021-03-26 13:09] LABS: BUN/Creatinine Ratio 10.4; Calcium 9.1 mg/dL (8.5-10.1); Potassium 4.1 mmol/L (3.5-5.1)
[2021-03-26] MEDS: RIVAROXABAN 20 MG TAB PO SCH (17:48)
[2021-03-26] MEDS ORDERED: LORazepam 2MG/ML-1ML VIAL IV PRN (18:15)
[2021-03-26] MEDS: ATORVASTATIN 20 MG TAB PO SCH (22:00)
[2021-03-27] MEDS ORDERED: VERAPAMIL HCL 120 mg ER tab PO ONE (02:45)
[2021-03-27] MEDS: VERAPAMIL HCL 120 mg ER tab PO SCH (10:33)
[2021-03-27] MEDS: METOPROLOL SUCCINATE XL 50 MG TAB PO SCH ×2 (10:34→22:17)
[2021-03-27] MEDS: FLORASTOR (S. BOULARDII) 250 MG CAP PO SCH ×2 (10:34→22:16)
[2021-03-27] MEDS: OXYBUTYNIN CHL 5 MG TAB PO SCH (10:34)
[2021-03-27] MEDS: FAMOTIDINE (10MG/ML) 2ML VL IV SCH ×2 (11:45→22:00)
[2021-03-27] MEDS: LACTATED RINGER'S 1,000 ML IV SCH ×2 (11:45→19:45)
[2021-03-27] MEDS: RIVAROXABAN 20 MG TAB PO SCH (18:21)
[2021-03-27] MEDS: ATORVASTATIN 20 MG TAB PO SCH (22:16)
[2021-03-28] MEDS ORDERED: VERAPAMIL HCL 40 MG TAB PO ONE ×2 (01:15→01:30)
[2021-03-28] MEDS: LACTATED RINGER'S 1,000 ML IV SCH ×3 (03:45→23:45)
[2021-03-28] MEDS: FLORASTOR (S. BOULARDII) 250 MG CAP PO SCH ×2 (10:00→23:00)
[2021-03-28] MEDS: FAMOTIDINE (10MG/ML) 2ML VL IV SCH (10:00)
[2021-03-28] MEDS: VERAPAMIL HCL 120 mg ER tab PO SCH (10:00)
[2021-03-28] MEDS: OXYBUTYNIN CHL 5 MG TAB PO SCH (10:00)
[2021-03-28] MEDS: METOPROLOL SUCCINATE XL 50 MG TAB PO SCH ×2 (10:00→23:00)
[2021-03-28] MEDS ORDERED: VERAPAMIL HCL 40 MG TAB PO SCH (10:00)
[2021-03-28] MEDS: RIVAROXABAN 20 MG TAB PO SCH (18:28)
[2021-03-28] MEDS: ATORVASTATIN 20 MG TAB PO SCH (23:00)
[2021-03-28] MEDS: VERAPAMIL HCL 40 MG TAB PO SCH (23:45)
[2021-03-29] MEDS: VERAPAMIL HCL 40 MG TAB PO SCH ×3 (06:19→22:00)
[2021-03-29 08:45] LABS: Basophils # (auto) 0.1 10 ^3/uL (0-0.2); Basophils % (auto) 0.9 % (0.0-2.0); Eosinophils # (auto) 0.2 10 ^3/uL (0-0.8); Eosinophils % (auto) 1.9 % (0.0-7.0); Hematocrit 38.2 % (36.0-46.0); Hemoglobin 12.9 g/dL (12.2-16.2); Lymphocytes # (auto) 1.9 10 ^3/uL (0.4-5.4); Lymphocytes % (auto) 21.6 % (10.0-50.0); Mean Corpuscular Hemoglobin 29.9 pg (28.0-32.0); Mean Corpuscular Hgb Conc. 33.8 g/dL (32.0-36.0); Mean Corpuscular Volume 88.6 fL (80.0-100.0); Monocytes # (auto) 0.7 10 ^3/uL (0-1.3); Monocytes % (auto) 7.6 % (0.0-12.0); Neutrophils # (auto) 5.9 10 ^3/uL (1.6-8.6); Red Blood Cells 4.31 10^6/uL (4.0-5.20); Red Cell Distribution Width 15.4 % (11.8-14.3); White Blood Cell 8.7 10^3/uL (4.4-10.8)
[2021-03-29 08:48] LABS: BUN/Creatinine Ratio 15.5; Calcium 9.1 mg/dL (8.5-10.1); Potassium 4.5 mmol/L (3.5-5.1)
[2021-03-29] MEDS: FAMOTIDINE (10MG/ML) 2ML VL IV SCH (08:55)
[2021-03-29] MEDS: OXYBUTYNIN CHL 5 MG TAB PO SCH (08:55)
[2021-03-29] MEDS: FLORASTOR (S. BOULARDII) 250 MG CAP PO SCH ×2 (08:56→23:02)
[2021-03-29] MEDS: METOPROLOL SUCCINATE XL 50 MG TAB PO SCH ×2 (08:56→22:00)
[2021-03-29 09:30] VITALS: BP 102/59
[2021-03-29] MEDS: LACTATED RINGER'S 1,000 ML IV SCH ×2 (09:45→19:45)
[2021-03-29 11:54] VITALS: BP 101/62
[2021-03-29 13:00] VITALS: BP 108/73
[2021-03-29 17:00] VITALS: BP 142/82
[2021-03-29] MEDS: RIVAROXABAN 20 MG TAB PO SCH (17:37)
[2021-03-29 22:00] VITALS: BP_SYST 101; BP_SYST 116; BP_DIAS 60; BP_DIAS 84
[2021-03-29] MEDS: ATORVASTATIN 20 MG TAB PO SCH (23:02)
[2021-03-30 05:00] VITALS: BP 111/74
[2021-03-30] MEDS: LACTATED RINGER'S 1,000 ML IV SCH (05:45)
[2021-03-30] MEDS: VERAPAMIL HCL 40 MG TAB PO SCH (06:00)
[2021-03-30 09:00] VITALS: BP 100/67
[2021-03-30] MEDS: FAMOTIDINE (10MG/ML) 2ML VL IV SCH (10:03)
[2021-03-30] MEDS: FLORASTOR (S. BOULARDII) 250 MG CAP PO SCH (10:03)
[2021-03-30] MEDS: OXYBUTYNIN CHL 5 MG TAB PO SCH (10:03)
== END 2021-03-30 10:15 | disposition short-term general hospital (02) | DRG 309 ==
LOC: ER 13:22 → EDBD 13:22 → TELE 16:19 → TELE-CENTR 03-26 03:55 → TELE 03-26 05:48 → TELE-WESTW 03-29 09:19
PROVIDERS: ADMIT Hospitalist; ATTEND Internal Medicine Nephrology
PROC: 05HD33Z Insertion of Infusion Device into Right Cephalic Vein, Percutaneous Approach (ICD-10-PCS; principal; 2021-03-28)
PROC: B54MZZA Ultrasonography of Right Upper Extremity Veins, Guidance (ICD-10-PCS; 2021-03-28)
DX: I48.19 Other persistent atrial fibrillation (principal); D68.69 Other thrombophilia; N39.0 Urinary tract infection, site not specified; R55 Syncope and collapse; N39.3 Stress incontinence (female) (male); E66.01 Morbid (severe) obesity due to excess calories; E03.9 Hypothyroidism, unspecified; E11.22 Type 2 diabetes mellitus with diabetic chronic kidney disease; E78.5 Hyperlipidemia, unspecified; I12.9 Hypertensive chronic kidney disease with stage 1 through stage 4 chronic kidney disease, or unspecified chronic kidney disease; R19.7 Diarrhea, unspecified; Z20.822 Contact with and (suspected) exposure to COVID-19; N31.8 Other neuromuscular dysfunction of bladder; Z79.01 Long term (current) use of anticoagulants; Z87.440 Personal history of urinary (tract) infections; Z80.0 Family history of malignant neoplasm of digestive organs; Z82.49 Family history of ischemic heart disease and other diseases of the circulatory system; Z83.3 Family history of diabetes mellitus; Z90.49 Acquired absence of other specified parts of digestive tract; Z90.710 Acquired absence of both cervix and uterus; Z91.19 Patient's noncompliance with other medical treatment and regimen; N18.31 Chronic kidney disease, stage 3a
CPT/HCPCS: 36415; 70450; 70551; 71045; 74177; 76830; 76856; 80048; 80053; 80307; 81001; 83036; 83735; 83880; 84100; 84439; 84443; 84484; 85025; 85610; 85730; 87086; 87426; 93005; 93886; 96365; 96375; 99291; G0378; J3490

== ENCOUNTER 2023-01-31 13:48 | Inpatient (IN) | payer OTHER ==
[~2023-01-31] VITALS: Ht 172.7 cm; Wt 134.5 kg
[~2023-01-31 13:48] MED LIST changes: -BISO5TAB44 PO; +LACTCAP35 PO; -OXYB10GE PO; +OXYB5TAB10 PO
[2023-01-31] MEDS ORDERED: ONDANSETRON HCL 4 MG/2 ML VIAL IV ONE (15:30)
[2023-01-31] MEDS ORDERED: MORPHINE SULFATE 4 MG/ML SYR/VIAL IV ONE (15:30)
[2023-01-31 15:45] VITALS: O2SAT 95
[2023-01-31 15:53] LABS: Basophils # (auto) 0 10 ^3/uL (0-0.2); Basophils % (auto) 0.5 % (0.0-2.0); Eosinophils # (auto) 0 10 ^3/uL (0-0.8); Eosinophils % (auto) 0.1 % (0.0-7.0); Hematocrit 37.2 % (36.0-46.0); Hemoglobin 12.3 g/dL (12.2-16.2); Lymphocytes # (auto) 0.9 10 ^3/uL (0.4-5.4); Lymphocytes % (auto) 9.5 % (10.0-50.0); Mean Corpuscular Hemoglobin 28.7 pg (28.0-32.0); Mean Corpuscular Hgb Conc. 33.1 g/dL (32.0-36.0); Mean Corpuscular Volume 86.9 fL (80.0-100.0); Monocytes # (auto) 0.8 10 ^3/uL (0-1.3); Monocytes % (auto) 8.2 % (0.0-12.0); Neutrophils # (auto) 7.8 10 ^3/uL (1.6-8.6); Neutrophils % (auto) 81.7 % (37.0-80.0); Red Blood Cells 4.28 10^6/uL (4.0-5.20); Red Cell Distribution Width 15.7 % (11.8-14.3); White Blood Cell 9.5 10^3/uL (4.4-10.8)
[2023-01-31 16:06] LABS: INR 1.27 (0.9-1.15); Prothrombin Time 13.1 sec (9.3-11.8)
[2023-01-31 16:20] LABS: Alanine Aminotransferase 15 U/L (7-40); Alkaline Phosphatase 94 U/L (46-116); Anion Gap 7.6 (5-15); Aspartate Aminotransferase 17 U/L (13-40); BUN/Creatinine Ratio 11.8 (10.0-20.0); Blood Urea Nitrogen 12 mg/dL (9-23); Calcium 8.9 mg/dL (8.5-10.1); Carbon Dioxide 21.4 mmol/L (20-30); Chloride 110 mmol/L (98-107); Glucose 129 mg/dL (74-106); Sodium 139 mmol/L (136-145)
[2023-01-31 16:21] LABS: Bilirubin, Total 0.3 mg/dL (0.2-1.0)
[2023-01-31] MEDS ORDERED: ASPirin-EC 325mg tab PO ONE (17:45)
[2023-01-31] MEDS ORDERED: KETOROLAC TROMETH 30 MG/ML 1ML VIAL IV ONE (18:45)
[2023-01-31 18:55] LABS: COVID19 ANTIGEN SOFIA FIA POSITIVE (NEGATIVE)
[2023-01-31] MEDS ORDERED: MORPHINE SULFATE INJ 2 MG/ml SYRG IV PRN (20:00)
[2023-01-31] MEDS ORDERED: NITROGLYCERIN 0.4 MG SL TAB SL PRN (20:00)
[2023-01-31] MEDS ORDERED: ACETAMINOPHEN 325 MG TAB PO PRN (20:00)
[2023-01-31 20:37] VITALS: PULSE 82; RESP 18; O2SAT 96
[2023-01-31] MEDS ORDERED: OMEP1CAP70 PO (20:57)
[2023-01-31] MEDS ORDERED: CHOL4POW33 PO (20:57)
[2023-01-31 21:07] VITALS: O2SAT 98
[2023-01-31] MEDS ORDERED: IPRATROPIUM BROM 0.5 MG/2.5ML INH SOL NEB PRN (21:15)
[2023-01-31] MEDS ORDERED: ALBUTEROL SULF 2.5 MG/0.5ML(0.5%) NEB SOLN NEB PRN (21:15)
[2023-01-31] MEDS: CHOLESTYRAMINE 4 GM POWDER PO SCH (22:51)
[2023-01-31 22:52] VITALS: BP 109/71; PULSE 62; RESP 22; TEMP 98; O2SAT 98
[2023-01-31] MEDS: VERAPAMIL HCL 40 MG TAB PO SCH (22:52)
[2023-01-31] MEDS: HYDROmorphone HCL 2 MG/ML VL/or syr IV PRN (23:45)
[2023-02-01] VITALS (8 sets, daily range): BP systolic 104–142; BP diastolic 61–73; PULSE 62–69; RESP 16–22; TEMP 98.1–98.5; O2SAT 96–100
[2023-02-01 04:46] LABS: Urine Bacteria MANY /hpf (None Seen); Urine Blood Negative /uL (Negative); Urine Clarity HAZY (Clear); Urine Color Yellow (Yellow); Urine Hyaline Cast FEW /lpf (0 - 2); Urine Mucus FEW (None Seen); Urine Protein, UAD TRACE (Negative); Urine Specific Gravity 1.029 (1.001-1.035); Urine Urobilinogen Normal (Negative); Urine WBC 2 /hpf (0 - 5); Urine pH 5.5 (5.0-8.0)
[2023-02-01 05:45] LABS: Basophils # (auto) 0 10 ^3/uL (0-0.2); Basophils % (auto) 0.5 % (0.0-2.0); Eosinophils # (auto) 0 10 ^3/uL (0-0.8); Hematocrit 33.1 % (36.0-46.0); Hemoglobin 11.2 g/dL (12.2-16.2); Lymphocytes # (auto) 1.1 10 ^3/uL (0.4-5.4); Lymphocytes % (auto) 13.9 % (10.0-50.0); Mean Corpuscular Hemoglobin 29.1 pg (28.0-32.0); Mean Corpuscular Hgb Conc. 33.8 g/dL (32.0-36.0); Mean Corpuscular Volume 86.1 fL (80.0-100.0); Monocytes # (auto) 0.6 10 ^3/uL (0-1.3); Neutrophils # (auto) 6.2 10 ^3/uL (1.6-8.6); Neutrophils % (auto) 77.6 % (37.0-80.0); Red Blood Cells 3.85 10^6/uL (4.0-5.20); Red Cell Distribution Width 15.6 % (11.8-14.3)
[2023-02-01 06:03] LABS: Alanine Aminotransferase 14 U/L (7-40); Alkaline Phosphatase 82 U/L (46-116); Anion Gap 0.9 (5-15); BUN/Creatinine Ratio 13.9 (10.0-20.0); Blood Urea Nitrogen 15 mg/dL (9-23); Calcium 8.6 mg/dL (8.5-10.1); Carbon Dioxide 28.1 mmol/L (20-30); Chloride 111 mmol/L (98-107); Glucose 124 mg/dL (74-106); LDL Cholesterol 94 mg/dL (< 100); Potassium 4.1 mmol/L (3.5-5.1); Sodium 140 mmol/L (136-145); Triglycerides 87 mg/dL (< 150)
[2023-02-01 06:04] LABS: Albumin 3.8 g/dL (3.2-4.8); Aspartate Aminotransferase 13 U/L (13-40); Cholesterol 137 mg/dL (< 200); HDL Cholesterol 31 mg/dL (40-59)
[2023-02-01 06:05] LABS: Bilirubin, Total 0.3 mg/dL (0.2-1.0); Total Protein 6.4 g/dL (5.7-8.2)
[2023-02-01] MEDS: CHOLESTYRAMINE 4 GM POWDER PO SCH ×3 (06:14→22:15)
[2023-02-01] MEDS: VERAPAMIL HCL 40 MG TAB PO SCH ×2 (10:00→22:15)
[2023-02-01] MEDS: ENOXAPARIN SOD 40 MG/0.4 ML SYRINGE SC SCH ×2 (10:00→11:06)
[2023-02-01] MEDS: HYDROmorphone HCL 2 MG/ML VL/or syr IV PRN ×3 (10:51→20:36)
[2023-02-01] MEDS: LOSARTAN POTASSIUM 25 MG TAB PO SCH (11:05)
[2023-02-01] MEDS: OXYBUTYNIN CHL 5 MG TAB PO SCH (11:05)
[2023-02-01] MEDS: PANTOPRAZOLE 40 MG TAB PO SCH (11:05)
[2023-02-01] MEDS ORDERED: ASCORBIC ACID 500 MG TAB PO ONE (14:00)
[2023-02-01] MEDS ORDERED: AZITHROMYCIN 250 MG TAB PO ONE (14:00)
[2023-02-01] MEDS ORDERED: cefTRIAXone 1GM/50ML D5W 50 ML IV ONE (14:00)
[2023-02-01] MEDS: guaiFENesin 200 MG/10 ML UD GT PRN (14:54)
[2023-02-02] VITALS (11 sets, daily range): BP systolic 116–131; BP diastolic 60–81; PULSE 60–89; RESP 18–19; TEMP 97.9–98.5; O2SAT 95–99
[2023-02-02] MEDS ORDERED: ONDANSETRON HCL 4 MG/2 ML VIAL IV PRN (00:15)
[2023-02-02] MEDS: HYDROmorphone HCL 2 MG/ML VL/or syr IV PRN (06:08)
[2023-02-02 07:55] LABS: Basophils # (auto) 0 10 ^3/uL (0-0.2); Basophils % (auto) 0.6 % (0.0-2.0); Eosinophils # (auto) 0 10 ^3/uL (0-0.8); Eosinophils % (auto) 0.6 % (0.0-7.0); Hematocrit 32.3 % (36.0-46.0); Hemoglobin 10.6 g/dL (12.2-16.2); Lymphocytes # (auto) 1.8 10 ^3/uL (0.4-5.4); Lymphocytes % (auto) 26.7 % (10.0-50.0); Mean Corpuscular Hemoglobin 28.2 pg (28.0-32.0); Mean Corpuscular Hgb Conc. 32.7 g/dL (32.0-36.0); Mean Corpuscular Volume 86.4 fL (80.0-100.0); Monocytes # (auto) 0.6 10 ^3/uL (0-1.3); Monocytes % (auto) 7.9 % (0.0-12.0); Neutrophils # (auto) 4.5 10 ^3/uL (1.6-8.6); Neutrophils % (auto) 64.2 % (37.0-80.0); Nucleated Red Blood Cells % 0.1 %; Red Blood Cells 3.74 10^6/uL (4.0-5.20); Red Cell Distribution Width 15.7 % (11.8-14.3); White Blood Cell 6.9 10^3/uL (4.4-10.8)
[2023-02-02] MEDS: CHOLESTYRAMINE 4 GM POWDER PO SCH ×3 (08:00→21:45)
[2023-02-02 08:18] LABS: Anion Gap 7.3 (5-15); Carbon Dioxide 22.7 mmol/L (20-30); Chloride 109 mmol/L (98-107); Potassium 4.2 mmol/L (3.5-5.1); Sodium 139 mmol/L (136-145)
[2023-02-02 08:20] LABS: Calcium 8.3 mg/dL (8.5-10.1)
[2023-02-02 08:24] LABS: BUN/Creatinine Ratio 14.1 (10.0-20.0); Blood Urea Nitrogen 12 mg/dL (9-23); Glucose 102 mg/dL (74-106)
[2023-02-02] MEDS ORDERED: DexAMETHasone SOD PHOS 4 MG/1ML SDV INJ IV ONE (10:30)
[2023-02-02] MEDS: ASCORBIC ACID 500 MG TAB PO SCH (11:00)
[2023-02-02] MEDS: OXYBUTYNIN CHL 5 MG TAB PO SCH (11:00)
[2023-02-02] MEDS: cefTRIAXone 1GM/50ML D5W 50 ML IV SCH (11:00)
[2023-02-02] MEDS: LOSARTAN POTASSIUM 25 MG TAB PO SCH (11:00)
[2023-02-02] MEDS: PANTOPRAZOLE 40 MG TAB PO SCH (11:00)
[2023-02-02] MEDS: ENOXAPARIN SOD 40 MG/0.4 ML SYRINGE SC SCH ×2 (11:00→12:24)
[2023-02-02] MEDS: AZITHROMYCIN 250 MG TAB PO SCH (11:00)
[2023-02-02] MEDS: VERAPAMIL HCL 40 MG TAB PO SCH ×2 (12:00→22:11)
[2023-02-02] MEDS: guaiFENesin 200 MG/10 ML UD GT PRN (12:10)
[2023-02-02] MEDS: traMADol HCL 50 MG TAB PO PRN (12:10)
[2023-02-02] MEDS ORDERED: HYDROcodone-ACET 5/325MG TAB PO PRN (16:00)
[2023-02-02] MEDS: DexAMETHasone SOD PHOS 4 MG/1ML SDV INJ IV SCH (18:57)
[2023-02-03] VITALS (11 sets, daily range): BP systolic 121–146; BP diastolic 69–87; PULSE 54–84; RESP 17–20; TEMP 97.9–98.2; O2SAT 96–97
[2023-02-03] MEDS: DexAMETHasone SOD PHOS 4 MG/1ML SDV INJ IV SCH ×3 (02:53→19:07)
[2023-02-03 07:34] LABS: Basophils # (auto) 0 10 ^3/uL (0-0.2); Basophils % (auto) 0.1 % (0.0-2.0); Eosinophils # (auto) 0 10 ^3/uL (0-0.8); Hematocrit 33.9 % (36.0-46.0); Hemoglobin 11.2 g/dL (12.2-16.2); Lymphocytes # (auto) 0.7 10 ^3/uL (0.4-5.4); Lymphocytes % (auto) 8.9 % (10.0-50.0); Mean Corpuscular Hemoglobin 28.5 pg (28.0-32.0); Mean Corpuscular Hgb Conc. 33.1 g/dL (32.0-36.0); Mean Corpuscular Volume 86.1 fL (80.0-100.0); Monocytes # (auto) 0.2 10 ^3/uL (0-1.3); Monocytes % (auto) 2.9 % (0.0-12.0); Neutrophils # (auto) 7.1 10 ^3/uL (1.6-8.6); Neutrophils % (auto) 88.1 % (37.0-80.0); Red Blood Cells 3.94 10^6/uL (4.0-5.20); Red Cell Distribution Width 15.5 % (11.8-14.3); White Blood Cell 8.1 10^3/uL (4.4-10.8)
[2023-02-03] MEDS: CHOLESTYRAMINE 4 GM POWDER PO SCH ×3 (07:55→22:00)
[2023-02-03] MEDS: PANTOPRAZOLE 40 MG TAB PO SCH (07:59)
[2023-02-03] MEDS: ASCORBIC ACID 500 MG TAB PO SCH (07:59)
[2023-02-03] MEDS: OXYBUTYNIN CHL 5 MG TAB PO SCH (07:59)
[2023-02-03] MEDS: AZITHROMYCIN 250 MG TAB PO SCH (07:59)
[2023-02-03] MEDS: VERAPAMIL HCL 40 MG TAB PO SCH ×2 (08:00→22:50)
[2023-02-03] MEDS: LOSARTAN POTASSIUM 25 MG TAB PO SCH (08:00)
[2023-02-03] MEDS: cefTRIAXone 1GM/50ML D5W 50 ML IV SCH (09:00)
[2023-02-03] MEDS: ENOXAPARIN SOD 40 MG/0.4 ML SYRINGE SC SCH (11:21)
[2023-02-03] MEDS: traMADol HCL 50 MG TAB PO PRN (12:49)
[2023-02-03] MEDS: RIVAROXABAN 20 MG TAB PO SCH (18:14)
[2023-02-04] VITALS (9 sets, daily range): BP systolic 136–145; BP diastolic 78–89; PULSE 50–79; RESP 18–20; TEMP 97.6–98.3; O2SAT 95–100
[2023-02-04] MEDS: DexAMETHasone SOD PHOS 4 MG/1ML SDV INJ IV SCH ×3 (02:28→19:52)
[2023-02-04] MEDS: CHOLESTYRAMINE 4 GM POWDER PO SCH ×3 (06:00→21:57)
[2023-02-04] MEDS: VERAPAMIL HCL 40 MG TAB PO SCH ×2 (10:00→21:51)
[2023-02-04] MEDS: MUPIROCIN 2% OINT 15gm or 22gm FOR MRSA NARES EACHNOSTRI SCH ×2 (10:00→21:53)
[2023-02-04] MEDS: cefTRIAXone 1GM/50ML D5W 50 ML IV SCH (10:11)
[2023-02-04] MEDS: OXYBUTYNIN CHL 5 MG TAB PO SCH (10:18)
[2023-02-04] MEDS: PANTOPRAZOLE 40 MG TAB PO SCH (10:19)
[2023-02-04] MEDS: AZITHROMYCIN 250 MG TAB PO SCH (10:19)
[2023-02-04] MEDS: ASCORBIC ACID 500 MG TAB PO SCH (10:21)
[2023-02-04] MEDS: LOSARTAN POTASSIUM 25 MG TAB PO SCH (10:21)
[2023-02-04] MEDS: traMADol HCL 50 MG TAB PO PRN (15:49)
[2023-02-04] MEDS: RIVAROXABAN 20 MG TAB PO SCH (18:05)
[2023-02-05] VITALS (7 sets, daily range): BP systolic 133–151; BP diastolic 81–87; PULSE 48–67; RESP 18–19; TEMP 97.9–98.3; O2SAT 94–96
[2023-02-05] MEDS: DexAMETHasone SOD PHOS 4 MG/1ML SDV INJ IV SCH ×3 (02:16→20:33)
[2023-02-05] MEDS: CHOLESTYRAMINE 4 GM POWDER PO SCH ×2 (05:40→18:31)
[2023-02-05 10:15] LABS: COVID19 ANTIGEN SOFIA FIA POSITIVE (NEGATIVE)
[2023-02-05] MEDS: cefTRIAXone 1GM/50ML D5W 50 ML IV SCH (10:27)
[2023-02-05] MEDS: MUPIROCIN 2% OINT 15gm or 22gm FOR MRSA NARES EACHNOSTRI SCH ×2 (10:28→21:06)
[2023-02-05] MEDS: VERAPAMIL HCL 40 MG TAB PO SCH ×2 (10:31→21:04)
[2023-02-05] MEDS: AZITHROMYCIN 250 MG TAB PO SCH (10:32)
[2023-02-05] MEDS: LOSARTAN POTASSIUM 25 MG TAB PO SCH (10:32)
[2023-02-05] MEDS: OXYBUTYNIN CHL 5 MG TAB PO SCH (10:32)
[2023-02-05] MEDS: PANTOPRAZOLE 40 MG TAB PO SCH (10:32)
[2023-02-05] MEDS: ASCORBIC ACID 500 MG TAB PO SCH (10:32)
[2023-02-05] MEDS: traMADol HCL 50 MG TAB PO PRN ×2 (10:33→17:59)
[2023-02-05] MEDS: RIVAROXABAN 20 MG TAB PO SCH (18:32)
[2023-02-06] VITALS (7 sets, daily range): BP systolic 129–165; BP diastolic 77–94; PULSE 52–74; RESP 16–21; TEMP 97.6–98.2; O2SAT 93–97
[2023-02-06] MEDS: DexAMETHasone SOD PHOS 4 MG/1ML SDV INJ IV SCH ×3 (02:54→18:50)
[2023-02-06] MEDS: CHOLESTYRAMINE 4 GM POWDER PO SCH ×2 (06:37→17:33)
[2023-02-06] MEDS: PANTOPRAZOLE 40 MG TAB PO SCH (09:06)
[2023-02-06] MEDS: OXYBUTYNIN CHL 5 MG TAB PO SCH (09:06)
[2023-02-06] MEDS: cefTRIAXone 1GM/50ML D5W 50 ML IV SCH (09:06)
[2023-02-06] MEDS: AZITHROMYCIN 250 MG TAB PO SCH (09:06)
[2023-02-06] MEDS: LOSARTAN POTASSIUM 25 MG TAB PO SCH (09:07)
[2023-02-06] MEDS: ASCORBIC ACID 500 MG TAB PO SCH (09:07)
[2023-02-06] MEDS: MUPIROCIN 2% OINT 15gm or 22gm FOR MRSA NARES EACHNOSTRI SCH ×2 (09:15→21:11)
[2023-02-06] MEDS: traMADol HCL 50 MG TAB PO PRN ×2 (09:23→21:12)
[2023-02-06] MEDS: VERAPAMIL HCL 40 MG TAB PO SCH ×2 (10:34→21:11)
[2023-02-06] MEDS: RIVAROXABAN 20 MG TAB PO SCH (17:33)
[2023-02-07] VITALS (7 sets, daily range): BP systolic 132–148; BP diastolic 73–87; PULSE 51–66; RESP 16–20; TEMP 97.6–98.9; O2SAT 93–95
[2023-02-07] MEDS: DexAMETHasone SOD PHOS 4 MG/1ML SDV INJ IV SCH ×3 (03:58→17:51)
[2023-02-07] MEDS: cefTRIAXone 1GM/50ML D5W 50 ML IV SCH (10:06)
[2023-02-07] MEDS: AZITHROMYCIN 250 MG TAB PO SCH (10:08)
[2023-02-07] MEDS: LOSARTAN POTASSIUM 25 MG TAB PO SCH (10:09)
[2023-02-07] MEDS: PANTOPRAZOLE 40 MG TAB PO SCH (10:09)
[2023-02-07] MEDS: OXYBUTYNIN CHL 5 MG TAB PO SCH (10:09)
[2023-02-07] MEDS: ASCORBIC ACID 500 MG TAB PO SCH (10:09)
[2023-02-07] MEDS: traMADol HCL 50 MG TAB PO PRN (10:10)
[2023-02-07] MEDS: MUPIROCIN 2% OINT 15gm or 22gm FOR MRSA NARES EACHNOSTRI SCH ×2 (10:11→21:55)
[2023-02-07] MEDS: CHOLESTYRAMINE 4 GM POWDER PO SCH ×2 (10:11→17:51)
[2023-02-07] MEDS: VERAPAMIL HCL 40 MG TAB PO SCH ×2 (11:03→21:55)
[2023-02-07] MEDS: RIVAROXABAN 20 MG TAB PO SCH (17:51)
[2023-02-08] VITALS (7 sets, daily range): BP systolic 111–145; BP diastolic 66–84; PULSE 50–66; RESP 18–19; TEMP 36.4–36.6; O2SAT 93–98
[2023-02-08] MEDS: DexAMETHasone SOD PHOS 4 MG/1ML SDV INJ IV SCH ×3 (03:06→18:34)
[2023-02-08] MEDS: CHOLESTYRAMINE 4 GM POWDER PO SCH ×2 (06:28→17:15)
[2023-02-08] MEDS: MUPIROCIN 2% OINT 15gm or 22gm FOR MRSA NARES EACHNOSTRI SCH ×2 (08:49→22:38)
[2023-02-08] MEDS: cefTRIAXone 1GM/50ML D5W 50 ML IV SCH (08:51)
[2023-02-08] MEDS: ASCORBIC ACID 500 MG TAB PO SCH (08:53)
[2023-02-08] MEDS: PANTOPRAZOLE 40 MG TAB PO SCH (08:53)
[2023-02-08] MEDS: AZITHROMYCIN 250 MG TAB PO SCH (08:53)
[2023-02-08] MEDS: LOSARTAN POTASSIUM 25 MG TAB PO SCH (08:53)
[2023-02-08] MEDS: OXYBUTYNIN CHL 5 MG TAB PO SCH (08:53)
[2023-02-08] MEDS: VERAPAMIL HCL 40 MG TAB PO SCH ×2 (08:54→22:38)
[2023-02-08] MEDS: traMADol HCL 50 MG TAB PO PRN ×2 (09:04→17:16)
[2023-02-08] MEDS: RIVAROXABAN 20 MG TAB PO SCH (17:14)
[2023-02-09] VITALS (7 sets, daily range): BP systolic 118–160; BP diastolic 51–96; PULSE 48–79; RESP 16–20; TEMP 97.8–98.6; O2SAT 94–98
[2023-02-09] MEDS: DexAMETHasone SOD PHOS 4 MG/1ML SDV INJ IV SCH ×3 (03:18→18:21)
[2023-02-09] MEDS: CHOLESTYRAMINE 4 GM POWDER PO SCH ×2 (06:38→17:00)
[2023-02-09] MEDS: VERAPAMIL HCL 40 MG TAB PO SCH ×2 (09:58→22:00)
[2023-02-09] MEDS: OXYBUTYNIN CHL 5 MG TAB PO SCH (10:00)
[2023-02-09] MEDS: traMADol HCL 50 MG TAB PO PRN ×2 (10:00→18:18)
[2023-02-09] MEDS: cefTRIAXone 1GM/50ML D5W 50 ML IV SCH (10:00)
[2023-02-09] MEDS: AZITHROMYCIN 250 MG TAB PO SCH (10:00)
[2023-02-09] MEDS: ASCORBIC ACID 500 MG TAB PO SCH (10:02)
[2023-02-09] MEDS: PANTOPRAZOLE 40 MG TAB PO SCH (10:02)
[2023-02-09] MEDS: LOSARTAN POTASSIUM 25 MG TAB PO SCH (10:03)
[2023-02-09 14:16] LABS: COVID19 ANTIGEN SOFIA FIA NEGATIVE (NEGATIVE)
[2023-02-09] MEDS: RIVAROXABAN 20 MG TAB PO SCH (17:40)
[2023-02-10] MEDS: DexAMETHasone SOD PHOS 4 MG/1ML SDV INJ IV SCH ×3 (03:40→18:30)
[2023-02-10 05:00] VITALS: BP 135/87; PULSE 50; RESP 16; TEMP 98.1; O2SAT 94
[2023-02-10] MEDS: CHOLESTYRAMINE 4 GM POWDER PO SCH ×2 (06:54→15:19)
[2023-02-10 08:00] VITALS: BP_SYST 139; BP_SYST 142; BP_DIAS 77; BP_DIAS 86; PULSE 52; PULSE 58; PULSE 66; RESP 18; RESP 19; TEMP 36.6; O2SAT 96
[2023-02-10] MEDS: cefTRIAXone 1GM/50ML D5W 50 ML IV SCH (09:59)
[2023-02-10] MEDS: ASCORBIC ACID 500 MG TAB PO SCH (10:01)
[2023-02-10] MEDS: LOSARTAN POTASSIUM 25 MG TAB PO SCH (10:01)
[2023-02-10] MEDS: PANTOPRAZOLE 40 MG TAB PO SCH (10:02)
[2023-02-10] MEDS: OXYBUTYNIN CHL 5 MG TAB PO SCH (10:02)
[2023-02-10] MEDS: VERAPAMIL HCL 40 MG TAB PO SCH ×2 (10:02→21:42)
[2023-02-10] MEDS: AZITHROMYCIN 250 MG TAB PO SCH (10:02)
[2023-02-10] MEDS: traMADol HCL 50 MG TAB PO PRN ×2 (11:08→18:21)
[2023-02-10 12:00] VITALS: BP 153/81; PULSE 67; RESP 18; TEMP 98.1; O2SAT 96
[2023-02-10 16:00] VITALS: BP 139/89; PULSE 64; RESP 18; TEMP 98.1; O2SAT 94
[2023-02-10] MEDS: RIVAROXABAN 20 MG TAB PO SCH (18:21)
[2023-02-10 20:00] VITALS: PULSE 59; O2SAT 97
[2023-02-10 22:00] VITALS: BP 132/78; PULSE 59; RESP 17; TEMP 97.9; O2SAT 95
[2023-02-11] VITALS (8 sets, daily range): BP systolic 111–139; BP diastolic 67–78; PULSE 53–67; RESP 18–21; TEMP 36.6; O2SAT 95–97
[2023-02-11] MEDS: DexAMETHasone SOD PHOS 4 MG/1ML SDV INJ IV SCH ×2 (03:38→11:00)
[2023-02-11] MEDS: CHOLESTYRAMINE 4 GM POWDER PO SCH ×2 (06:36→16:23)
[2023-02-11] MEDS: OXYBUTYNIN CHL 5 MG TAB PO SCH (09:22)
[2023-02-11] MEDS: LOSARTAN POTASSIUM 25 MG TAB PO SCH (09:22)
[2023-02-11] MEDS: traMADol HCL 50 MG TAB PO PRN ×2 (09:22→17:32)
[2023-02-11] MEDS: AZITHROMYCIN 250 MG TAB PO SCH (09:22)
[2023-02-11] MEDS: ASCORBIC ACID 500 MG TAB PO SCH (09:22)
[2023-02-11] MEDS: PANTOPRAZOLE 40 MG TAB PO SCH (09:23)
[2023-02-11] MEDS: cefTRIAXone 1GM/50ML D5W 50 ML IV SCH (09:23)
[2023-02-11] MEDS: VERAPAMIL HCL 40 MG TAB PO SCH ×2 (09:23→22:00)
[2023-02-11] MEDS: RIVAROXABAN 20 MG TAB PO SCH (17:32)
[2023-02-12] VITALS (7 sets, daily range): BP systolic 102–139; BP diastolic 52–78; PULSE 52–68; RESP 14–20; TEMP 36.6; O2SAT 92–99
[2023-02-12] MEDS: traMADol HCL 50 MG TAB PO PRN ×3 (02:22→17:57)
[2023-02-12] MEDS: CHOLESTYRAMINE 4 GM POWDER PO SCH ×2 (06:30→06:36)
[2023-02-12] MEDS: LOSARTAN POTASSIUM 25 MG TAB PO SCH (10:11)
[2023-02-12] MEDS: ASCORBIC ACID 500 MG TAB PO SCH (10:11)
[2023-02-12] MEDS: VERAPAMIL HCL 40 MG TAB PO SCH ×2 (10:11→22:00)
[2023-02-12] MEDS: PANTOPRAZOLE 40 MG TAB PO SCH (10:11)
[2023-02-12] MEDS: OXYBUTYNIN CHL 5 MG TAB PO SCH (10:11)
[2023-02-12] MEDS: RIVAROXABAN 20 MG TAB PO SCH (17:57)
[2023-02-13 05:00] VITALS: BP 113/60; PULSE 66; RESP 18; TEMP 98.3; O2SAT 98
[2023-02-13] MEDS: CHOLESTYRAMINE 4 GM POWDER PO SCH ×3 (06:04→18:20)
[2023-02-13 09:00] VITALS: BP 125/79; PULSE 66; RESP 16; TEMP 98.3; O2SAT 97
[2023-02-13] MEDS: OXYBUTYNIN CHL 5 MG TAB PO SCH (09:58)
[2023-02-13] MEDS: ASCORBIC ACID 500 MG TAB PO SCH (09:58)
[2023-02-13] MEDS: PANTOPRAZOLE 40 MG TAB PO SCH (09:58)
[2023-02-13] MEDS: LOSARTAN POTASSIUM 25 MG TAB PO SCH (10:00)
[2023-02-13] MEDS: VERAPAMIL HCL 40 MG TAB PO SCH ×2 (10:01→22:11)
[2023-02-13] MEDS: traMADol HCL 50 MG TAB PO PRN ×2 (10:03→22:26)
[2023-02-13 12:52] VITALS: BP 119/66; PULSE 68; RESP 14; TEMP 97.8; O2SAT 97
[2023-02-13 16:32] VITALS: BP 110/64; PULSE 71; RESP 14; TEMP 97.2; O2SAT 98
[2023-02-13] MEDS: RIVAROXABAN 20 MG TAB PO SCH (18:20)
[2023-02-13 20:00] VITALS: PULSE 68; RESP 19; O2SAT 100
[2023-02-13 23:18] VITALS: BP 119/67; PULSE 68; RESP 19; TEMP 98.5; O2SAT 100
[2023-02-14 04:53] VITALS: BP 121/73; PULSE 60; RESP 18; TEMP 98.4; O2SAT 99
[2023-02-14] MEDS: CHOLESTYRAMINE 4 GM POWDER PO SCH ×2 (06:37→16:40)
[2023-02-14 08:00] VITALS: PULSE 63; RESP 16; O2SAT 100
[2023-02-14] MEDS: traMADol HCL 50 MG TAB PO PRN (08:47)
[2023-02-14] MEDS: ASCORBIC ACID 500 MG TAB PO SCH (08:47)
[2023-02-14] MEDS: OXYBUTYNIN CHL 5 MG TAB PO SCH (08:48)
[2023-02-14] MEDS: LOSARTAN POTASSIUM 25 MG TAB PO SCH (08:48)
[2023-02-14] MEDS: VERAPAMIL HCL 40 MG TAB PO SCH (08:49)
[2023-02-14] MEDS: PANTOPRAZOLE 40 MG TAB PO SCH (08:52)
[2023-02-14 09:00] VITALS: BP 124/58; PULSE 63; RESP 14; TEMP 98.7; O2SAT 98
[2023-02-14 13:00] VITALS: BP 101/58; PULSE 70; RESP 17; TEMP 98.6; O2SAT 97
[2023-02-14] MEDS ORDERED: TRAM50TA2 PO (13:50)
[2023-02-14 17:00] VITALS: BP 129/75; PULSE 78; RESP 18; TEMP 98.5; O2SAT 96
[2023-02-14 17:19] VITALS: BP 124/58; PULSE 63; TEMP 37
[2023-02-14] MEDS: RIVAROXABAN 20 MG TAB PO SCH (17:51)
== END 2023-02-14 19:01 | disposition home health service (06) | DRG 562 ==
LOC: ER 13:48 → EDUNIT# 13:48 → EDBD 13:48 → TELE 20:24 → TELE-EAST 02-01 10:42 → EAST 02-14 04:19
PROVIDERS: ADMIT Nurse Practitioner Family; ATTEND Nurse Practitioner Acute Care
DX: S42.202A Unspecified fracture of upper end of left humerus, initial encounter for closed fracture (principal); I21.A1 Myocardial infarction type 2; U07.1 COVID-19; J96.00 Acute respiratory failure, unspecified whether with hypoxia or hypercapnia; Z68.42 Body mass index [BMI] 45.0-49.9, adult; I48.91 Unspecified atrial fibrillation; K58.9 Irritable bowel syndrome, unspecified; Z20.822 Contact with and (suspected) exposure to COVID-19; B96.20 Unspecified Escherichia coli [E. coli] as the cause of diseases classified elsewhere; J40 Bronchitis, not specified as acute or chronic; I10 Essential (primary) hypertension; E66.01 Morbid (severe) obesity due to excess calories; R19.00 Intra-abdominal and pelvic swelling, mass and lump, unspecified site; Z88.5 Allergy status to narcotic agent; K21.9 Gastro-esophageal reflux disease without esophagitis; W01.0XXA Fall on same level from slipping, tripping and stumbling without subsequent striking against object, initial encounter; N30.90 Cystitis, unspecified without hematuria; N83.9 Noninflammatory disorder of ovary, fallopian tube and broad ligament, unspecified; N94.89 Other specified conditions associated with female genital organs and menstrual cycle; Z80.0 Family history of malignant neoplasm of digestive organs; Y92.091 Bathroom in other non-institutional residence as the place of occurrence of the external cause; Z82.49 Family history of ischemic heart disease and other diseases of the circulatory system; Z83.3 Family history of diabetes mellitus; Y93.89 Activity, other specified; Y99.8 Other external cause status
CPT/HCPCS: 36415; 71045; 72192; 73030; 73060; 73100; 73562; 80048; 80053; 80061; 81001; 84132; 84443; 84484; 85025; 85610; 87081; 87086; 87088; 87186; 87426; 93005; 97110; 97116; 97163; 97530; G0378; J0696; J1100; J1885; J2405